=== PATIENT | female | born 1985 | race Caucasian/White ===

== ENCOUNTER 2024-05-02 08:41 | Emergency (ER) | payer SELFPAY ==
[2024-05-02] MEDS ORDERED: Ketorolac Tromethamine 30 MG (1 mL) VIAL ONE (09:18)
== END 2024-05-02 09:29 | disposition home or self-care (01) ==
LOC: ERS 08:41
DX: K04.7 Periapical abscess without sinus (principal)
CPT/HCPCS: 96372; 99282; J1885